=== PATIENT | female | born 1980 | race Caucasian/White ===

== ENCOUNTER 2016-06-25 15:48 | Emergency (ER) | payer OTHER ==
[~2016-06-25 15:48] MED LIST: ACIDCAP15 PO; ADDERALL PO; ASPI1TAB PO; ATOR1TAB19 PO; BENA25CA2 PO; BUSP10TA PO; CLON0.5T PO; FLUO60TA PO; FLUTISP; GABA-283 PO; GABA300C3 PO; HYDR25T PO; INSUDET SC; INSUHUMDS SC; IRON65TA PO; LAMO150T PO; LISI-542 PO; MAGN1TAB25 PO; MELA10CA PO; MONT10TA2 PO; NEXI40CA PO; PROBCAP4 PO; PROZ20CA11 PO; SERO50TA3 PO; SING10TA32 PO; WELL100T PO; WELLBUTRIN PO; [UNRECOGNIZED DRUG - CODE] PO
[2016-06-25 17:18] LABS: BASO % 0.2 % (0.0-1.0); EOS % 0.3 % (0.0-3.0); LARGE UNSTAINED CELL # 0.1 K/mm3 (0.0-0.4); LARGE UNSTAINED CELL % 0.6 % (0.0-4.0); LYMPH # 1.5 K/mm3 (1.5-4.5); LYMPH % 13.5 % (24.0-44.0); MEAN CORPUSCULAR HEMOGLOBIN 30.9 pg (27.0-33.0); MEAN CORPUSCULAR HGB CONC 33.5 g/dl (32.0-36.5); MEAN CORPUSCULAR VOLUME 92.3 fl (80.0-96.0); MONO # 0.3 K/mm3 (0.0-0.8); MONO % 2.6 % (0.0-5.0); NEUTROPHILS # 8.9 K/mm3 (1.8-7.7); NEUTROPHILS % 82.7 % (36.0-66.0); PLATELET COUNT, AUTOMATED 368 k/mm3 (150-450); RED CELL DISTRIBUTION WIDTH 11.9 % (11.5-14.5); WHITE BLOOD COUNT 10.8 K/mm3 (4.0-10.0)
[2016-06-25 17:52] LABS: ALBUMIN 3.8 GM/DL (3.2-5.2); ALBUMIN/GLOBULIN RATIO 1.27 (1.00-1.93); BILIRUBIN,DIRECT 0.2 MG/DL (0.0-0.2); BILIRUBIN,TOTAL 0.5 MG/DL (0.2-1.0); CALCIUM LEVEL 8.7 MG/DL (8.5-10.1); CREATININE FOR GFR 1.2 MG/DL (0.55-1.02); FREE T4 1.09 NG/DL (0.76-1.46); GLOMERULAR FILTRATION RATE 54.1 (>60); MAGNESIUM LEVEL 2.1 MG/DL (1.8-2.4); POTASSIUM SERUM 4.4 MEQ/L (3.5-5.1); TOTAL PROTEIN 6.8 GM/DL (6.4-8.2)
--- NOTE | 2016-06-25 21:02 | EDDOCDS ---
Nurse's Notes [facility] Name: Clair Yanes Age: 35 yrs Sex: Female : 1980 Arrival Date: 06/25/2016 Time: 15:48 Bed 6 Private MD: Marva Diagnosis: Hyperglycemia, unspecified;Dehydration Presentation: 06/25 15:51 Presenting complaint: Patient states: Blood sugar of 376 at home around 1500 today. Pt ead reports recent changes in insulin with pump, blood sugars have been in the 500's at home. Reports diarrhea and nausea over the past week. Adult Sepsis Screening: The patient does not have new or worsening altered mentation. Patient's respiratory rate is less than 22. Systolic blood pressure is greater than 100. Patient has a qSOFA score of 0- Negative Sepsis Screen. Suicide/Homicide risk assessment- the patient denies having any suicidal and/or homicidal ideations and does not present with any other emotional, behavioral or mental health complaints. Status: The patient is a dependent. Transition of care: patient was not received from another setting of care. 15:51 Acuity: SHELTON Level 3 ead 15:51 Method Of Arrival: Walkin/Carried/Asstd ead Triage Assessment: 15:57 General: Appears in no apparent distress, Behavior is appropriate for age, cooperative. ead Pain: Denies pain. HIV screening NA for this visit Offered previously. Respiratory: Airway is patent Respiratory effort is even, unlabored. GI: Reports nausea, Denies pain. Derm: Skin is pink, warm & dry. 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 aspirin 81 mg Oral chew 1 tab nightly 2. atorvastatin 10 mg oral tab 1 tab once daily 3. bupropion HCl 300 mg Oral Tb24 1 tab once daily 4. buspirone 10 mg Oral tab 1 tab 2 times per day 5. clonazepam 0.5 mg Oral tab 1 tab nightly 6. dextramp-amphet 25 mg XL twice a day 7. ferrous sulfate 325 mg (65 mg iron) Oral TbEC daily 8. Flonase 50 mcg/actuation Nasal spsn 2 sprays once daily 9. fluoxetine 60 mg Oral tab 1 tab once daily 10. gabapentin 400 mg Oral cap 1 cap nightly 11. lamotrigine 150 mg Oral tab 1 tab 2 times per day 12. Novolog 100 unit/mL Sub-Q soln insulin pump with sliding scale 13. lisinopril 5 mg Oral tab 1 tab nightly 14. Mag Citrate Oral 1600 mg nightly 15. magnesium oxide 400 mg oral tab 800 mg 16. melatonin 10 mg Oral tab nightly 17. MgO 400 mg oral tab daily 18. Nexium 40 mg Oral cpDR 1 cap 2 times per day 19. Pepcid 20 mg Oral tab 1 tab 2 times per day 20. Probiotic oral 1 billion 21. Seroquel 75 mg Oral tab 1 tab once daily 22. Singulair 10 mg Oral tab 1 tab nightly 23. topiramate oral 50 mg am 100 mg pm oral 24. Botox injection injection every three months - PMHx: Depression; Hypercholesterolemia; GERD; Diabetes - IDDM: controlled; Bipolar disorder; CVA; Anxiety; - PSHx: septoplasty; Tubal ligation; Laparoscopy; - Social history: Smoking status: Patient states was never smoker of tobacco. No barriers to communication noted, The patient speaks fluent Latvian, Speaks appropriately for age. - Family history: Not pertinent. - : The pt / caregiver states he / she is not on anticoagulants. Home medication list is obtained from the patient, [employer] import data. - Exposure Risk Screening:: None identified. Screenin:27 Screening information is obtained from the patient. Fall risk: No risks identified. kc3 Assistance ADL's: requires no assistance with activities of daily living. Abuse/DV Screen: The patient / caregiver reports he/she is: not in a situation that causes fear, pain or injury. Nutritional screening: No deficits noted. Advance Directives: Currently, there is no health care proxy. home support is adequate. Assessment: 17:26 General: Appears in no apparent distress, comfortable, Behavior is appropriate for age, kc3 cooperative. Pain: Location: abdomen. Neurological: Level of Consciousness is awake, alert, obeys commands, Oriented to person, place, time. Respiratory: Airway is patent Respiratory effort is even, unlabored. : Reports urinary frequency. Derm: Skin is pink, warm & dry. Musculoskeletal: Circulation, motion, and sensation intact. 18:47 General: Appears in no apparent distress, comfortable, Behavior is appropriate for age, kc3 cooperative. Neurological: Level of Consciousness is awake, alert, obeys commands, Oriented to person, place, time. Respiratory: Airway is patent Respiratory effort is even, unlabored. GI: Denies nausea. Derm: Skin is pink, warm & dry. 19:55 General: Appears in no apparent distress, comfortable, Behavior is appropriate for age, nn1 cooperative. Pain: Denies pain. Neurological: Level of Consciousness is awake, alert, obeys commands, Oriented to person, place, time. Respiratory: Airway is patent Respiratory effort is even, unlabored. Derm: Skin is pink, warm & dry. 21:00 General: Appears in no apparent distress, comfortable, Behavior is appropriate for age, nn1 cooperative. Neurological: Level of Consciousness is awake, alert, obeys commands, Oriented to person, place, time. Respiratory: Airway is patent Respiratory effort is even, unlabored. Derm: Skin is pink, warm & dry. Musculoskeletal: Circulation, motion, and sensation intact. Vital Signs: 15:50 BP 107 / 59; Pulse 115; Resp 18; Temp 97.6; Pulse Ox 98% on R/A; Weight 70.31 kg; dem1 Height 5 ft. 3 in. (160.02 cm); Pain 0/10; 18:48 BP 118 / 55; Pulse 87; Resp 18; Pulse Ox 97% on R/A; kc3 20:41 BP 113 / 57; Pulse 95; Resp 18; Temp 99.3(O); Pulse Ox 98% on R/A; Pain 0/10; osvaldo 15:50 Body Mass Index 27.46 (70.31 kg, 160.02 cm) [facility] Vitals: 15:50 Log In Time: June 25, 2016 at 15:48. [facility] ED Course: 15:49 Patient visited by Ale Mayberry. dem1 15:49 Marva is Private Physician. dem1 15:49 Patient moved to Waiting dem1 15:51 Patient moved to Pre RCE dem1 15:52 Triage Initiated ead 15:58 Imani Hamm,RN is Primary Nurse. ead 15:58 Patient moved to 6 ead 16:25 Gene Matamoros MD is Attending Physician. ml 16:25 Patient visited by Gene Matamoros MD. ml 17:26 Patient visited by Imani Hamm RN. kc3 17:28 The patient / caregiver is instructed regarding the plan of care and ED course. kc3 17:28 Inserted saline lock: 20 gauge in left antecubital area and blood collected. The kc3 patient tolerated the procedure well. 18:08 Patient visited by Imani Hamm RN. kc3 18:13 Fingerstick Blood Sugar Sent. jmb 18:46 Patient visited by Imani Hamm RN. kc3 19:14 T-Sheet-- Draft Copy was scanned into [employer] [place] and attached to record. zo 19:36 Attending Physician role handed off by Gene Matamoros MD cs11 19:36 Steven Akbar DO is Attending Physician. cs11 19:51 Patient visited by Sarahi Mac RN. nn1 20:38 Marva is Referral Physician. cs11 20:42 Patient visited by Karime Murphy PCA. osvaldo 21:01 No procedures done that require assistance. nn1 Administered Medications: 17:26 Drug: NS 0.9% 1000 ml [sodium chloride 0.9 % intravenous solution] Route: IV; Rate: kc3 bolus; Site: left antecubital; 18:35 Drug: NS 0.9% 1000 ml [sodium chloride 0.9 % intravenous solution] Route: IV; Rate: kc3 bolus; Site: left antecubital; Point of Care Testing: Blood Glucose: 15:59 Blood Glucose: 380 mg/dL; ead 18:07 Blood Glucose: 237 mg/dL; kcs 18:13 Blood Glucose: 221 mg/dL; jmb 19:55 Blood Glucose: 199 mg/dL; nn1 Ranges: Order Results: Lab Order: Fingerstick Blood Sugar; SPEC'M 06/25/16 15:53 Test: BEDSIDE GLUCOSE; Value: 380; Range: 70-105; Abnormal: Above high normal; Units: MG/DL; Status: F Lab Order: CBC with Diff; SPEC'M 06/25/16 17:08 Test: WHITE BLOOD COUNT; Value: 10.8; Range: 4.0-10.0; Abnormal: Above high normal; Units: K/mm3; Status: F Test: RED BLOOD COUNT; Value: 4.09; Range: 4.00-5.40; Units: M/mm3; Status: F Test: HEMOGLOBIN; Value: 12.6; Range: 12.0-16.0; Units: g/dl; Status: F Test: HEMATOCRIT; Value: 37.7; Range: 36.0-47.0; Units: %; Status: F Test: MEAN CORPUSCULAR VOLUME; Value: 92.3; Range: 80.0-96.0; Units: fl; Status: F Test: MEAN CORPUSCULAR HEMOGLOBIN; Value: 30.9; Range: 27.0-33.0; Units: pg; Status: F Test: MEAN CORPUSCULAR HGB CONC; Value: 33.5; Range: 32.0-36.5; Units: g/dl; Status: F Test: RED CELL DISTRIBUTION WIDTH; Value: 11.9; Range: 11.5-14.5; Units: %; Status: F Test: PLATELET COUNT, AUTOMATED; Value: 368; Range: 150-450; Units: k/mm3; Status: F Test: NEUTROPHILS %; Value: 82.7; Range: 36.0-66.0; Abnormal: Above high normal; Units: %; Status: F Test: LYMPH %; Value: 13.5; Range: 24.0-44.0; Abnormal: Below low normal; Units: %; Status: F Test: MONO %; Value: 2.6; Range: 0.0-5.0; Units: %; Status: F Test: EOS %; Value: 0.3; Range: 0.0-3.0; Units: %; Status: F Test: BASO %; Value: 0.2; Range: 0.0-1.0; Units: %; Status: F Test: LARGE UNSTAINED CELL %; Value: 0.6; Range: 0.0-4.0; Units: %; Status: F Test: NEUTROPHILS #; Value: 8.9; Range: 1.8-7.7; Abnormal: Above high normal; Units: K/mm3; Status: F Test: LYMPH #; Value: 1.5; Range: 1.5-4.5; Units: K/mm3; Status: F Test: MONO #; Value: 0.3; Range: 0.0-0.8; Units: K/mm3; Status: F Test: EOS #; Value: 0.0; Range: 0.0-0.50; Units: K/mm3; Status: F Test: BASO #; Value: 0.0; Range: 0.0-0.2; Units: K/mm3; Status: F Test: LARGE UNSTAINED CELL #; Value: 0.1; Range: 0.0-0.4; Units: K/mm3; Status: F Lab Order: Liver Profile; [facility] 06/25/16 17:08 Test: AST/SGOT; Value: 17; Range: 15-37; Units: U/L; Status: F Test: ALT/SGPT; Value: 32; Range: 12-78; Units: U/L; Status: F Test: ALKALINE PHOSPHATASE; Value: 125; Range: 45-117; Abnormal: Above high normal; Units: U/L; Status: F Test: BILIRUBIN,TOTAL; Value: 0.5; Range: 0.2-1.0; Units: MG/DL; Status: F Test: BILIRUBIN,DIRECT; Value: 0.2; Range: 0.0-0.2; Units: MG/DL; Status: F Test: TOTAL PROTEIN; Value: 6.8; Range: 6.4-8.2; Units: GM/DL; Status: F Test: ALBUMIN; Value: 3.8; Range: 3.2-5.2; Units: GM/DL; Status: F Test: ALBUMIN/GLOBULIN RATIO; Value: 1.27; Range: 1.00-1.93; Status: F Lab Order: Magnesium Level; [facility] 06/25/16 17:08 Test: MAGNESIUM LEVEL; Value: 2.1; Range: 1.8-2.4; Units: MG/DL; Status: F Lab Order: TSH with Free T4; [facility]06/25[facility]16 17:08 Test: THYROID STIMULATING HORMONE; Value: 0.494; Range: 0.358-3.740; Units: uIU/ML; Status: F Test: FREE T4; Value: 1.09; Range: 0.76-1.46; Units: NG/DL; Status: F Lab Order: UA; [facility]06/[facility] 16:56 Test: APPEARANCE, URINE; Value: HAZY; Range: CLEAR; Status: F Test: COLOR, URINE; Value: YELLOW; Range: YELLOW; Status: F Test: PH,URINE; Value: 5.0; Range: 5.0-9.0; Units: UNITS; Status: F Test: SPECIFIC GRAVITY URINE AUTO; Value: 1.030; Range: 1.002-1.035; Status: F Test: PROTEIN, URINE AUTO; Value: NEGATIVE; Range: NEGATIVE; Units: mg/dL; Status: F Test: GLUCOSE, URINE (UA) AUTO; Value: 3+; Range: NEGATIVE; Abnormal: Above high normal; Units: mg/dL; Status: F Test: KETONE, URINE AUTO; Value: 2+; Range: NEGATIVE; Abnormal: Above high normal; Units: mg/dL; Status: F Test: UROBILINOGEN, URINE AUTO; Value: 0.2; Range: 0.0-2.0; Units: mg/dL; Status: F Test: BILIRUBIN, URINE AUTO; Value: NEGATIVE; Range: NEGATIVE; Status: F Test: NITRITE, URINE AUTO; Value: NEGATIVE; Range: NEGATIVE; Status: F Test: LEUKOCYTE ESTERASE, URINE AUTO; Value: NEGATIVE; Range: NEGATIVE; Status: F Test: BLOOD, URINE BLOOD; Value: NEGATIVE; Range: NEGATIVE; Status: F Test: WBC, URINE AUTO; Value: 1; Range: 0-3; Units: /HPF; Status: F Test: RBC, URINE AUTO; Value: 2; Range: 0-3; Units: /HPF; Status: F Test: BACTERIA, URINE AUTO; Value: NEGATIVE; Range: NEGATIVE; Status: F Test: SQUAMOUS EPITHELIAL CELL UR AU; Value: 3; Range: 0-6; Units: /HPF; Status: F Test: MUCUS, URINE; Value: SMALL; Range: NEGATIVE; Status: F Test: HYALINE CAST, URINE AUTO; Value: 0; Range: 0-1; Units: /LPF; Status: F Test: AMORPHOUS SEDIMENT; Value: SMALL; Range: NEGATIVE; Abnormal: Above high normal; Status: F Lab Order: BASIC METABOLIC PROFILE; SPEC'M 06/25/16 17:08 Test: GLUCOSE, FASTING; Value: 311; Range: 70-105; Abnormal: Above high normal; Units: MG/DL; Status: F Test: BLOOD UREA NITROGEN; Value: 32; Range: 7-18; Abnormal: Above high normal; Units: MG/DL; Status: F Test: CREATININE FOR GFR; Value: 1.20; Range: 0.55-1.02; Abnormal: Above high normal; Units: MG/DL; Status: F Test: GLOMERULAR FILTRATION RATE; Value: 54.1; Range: >60; Abnormal: Below low normal; Status: F Test: SODIUM LEVEL; Value: 135; Range: 136-145; Abnormal: Below low normal; Units: MEQ/L; Status: F Test: POTASSIUM SERUM; Value: 4.4; Range: 3.5-5.1; Units: MEQ/L; Status: F Test: CHLORIDE LEVEL; Value: 101; Range: 98-107; Units: MEQ/L; Status: F Test: CARBON DIOXIDE LEVEL; Value: 20; Range: 21-32; Abnormal: Below low normal; Units: MEQ/L; Status: F Test: ANION GAP; Value: 14; Range: 8-16; Units: MEQ/L; Status: F Test: CALCIUM LEVEL; Value: 8.7; Range: 8.5-10.1; Units: MG/DL; Status: F Test Note: ; Units are mL/min/1.73 m2 Chronic Kidney Disease Staging per NKF: Stage I & II GFR >=60 Normal to Mildly Decreased Stage III GFR 30-59 Moderately Decreased Stage IV GFR 15-29 Severely Decreased Stage V GFR <15 Very Little GFR Left ESRD GFR <15 on CERTIFIED MEDICATION TECHNICIAN Lab Order: Fingerstick Blood Sugar; SPEC'06/25/16 18:00 Test: BEDSIDE GLUCOSE; Value: 237; Range: 70-105; Abnormal: Above high normal; Units: MG/DL; Status: F Test Note: ; Dr Order not to Draw Repeated Test Lab Order: Fingerstick Blood Sugar; SPEC'M 06/25/16 18:12 Test: BEDSIDE GLUCOSE; Value: 221; Range: 70-105; Abnormal: Above high normal; Units: MG/DL; Status: F Lab Order: Fingerstick Blood Sugar; SPEC'06/25/16 19:54 Test: BEDSIDE GLUCOSE; Value: 199; Range: 70-105; Abnormal: Above high normal; Units: MG/DL; Status: F Outcome: 20:39 Discharge ordered by Provider. cs11 21:01 Discharge Assessment: Patient awake, alert and oriented x 3. No cognitive and/or nn1 functional deficits noted. Patient verbalized understanding of disposition instructions. patient administered narcotics - no. The following High Risk Discharge criteria are identified: None. Discharged to home ambulatory, with family. Condition: stable Condition: improved. Property :Personal belongings accompany Pt. 21:01 No special radiology studies were completed. nn1 21:01 Patient left the ED. nn1 Signatures: Gene Matamoros MD MD ml Sleeman, Kacey, RN RN Yogesh Berman Destiny, COUNTY COURT JUDGE COUNTY COURT JUDGE osvaldo Jefe, Ale dem1 Steven Akbar, DO cs11 Jose Armando EdwardsRN RN Sierra MoraRN RN Sarahi DimasRN RN nn1 Imani Hamm,RN RN kc3 MTDD
--- NOTE | 2016-06-25 21:02 | EDDOCDS ---
Physician Documentation [facility] Name: Clair Yanes Age: 35 yrs Sex: Female : 1980 Arrival Date: 06/25/2016 Time: 15:48 Bed 6 Private MD: Marva Disposition: 06/25/16 20:39 Discharged to Home/Self Care. Impression: Hyperglycemia, unspecified, Dehydration. - Condition is Stable. - Medication Reconciliation, Local Pharmacy Hours form. - Follow up: Marva; When: Call to arrange an appointment; Reason: Recheck today's complaints. - Problem is chronic. - Symptoms have improved. Historical: - Allergies: Latuda (Swelling); - Home Meds: 1. aspirin 81 mg Oral chew 1 tab nightly 2. atorvastatin 10 mg oral tab 1 tab once daily 3. bupropion HCl 300 mg Oral Tb24 1 tab once daily 4. buspirone 10 mg Oral tab 1 tab 2 times per day 5. clonazepam 0.5 mg Oral tab 1 tab nightly 6. dextramp-amphet 25 mg XL twice a day 7. ferrous sulfate 325 mg (65 mg iron) Oral TbEC daily 8. Flonase 50 mcg/actuation Nasal spsn 2 sprays once daily 9. fluoxetine 60 mg Oral tab 1 tab once daily 10. gabapentin 400 mg Oral cap 1 cap nightly 11. lamotrigine 150 mg Oral tab 1 tab 2 times per day 12. Novolog 100 unit/mL Sub-Q soln insulin pump with sliding scale 13. lisinopril 5 mg Oral tab 1 tab nightly 14. Mag Citrate Oral 1600 mg nightly 15. magnesium oxide 400 mg oral tab 800 mg 16. melatonin 10 mg Oral tab nightly 17. MgO 400 mg oral tab daily 18. Nexium 40 mg Oral cpDR 1 cap 2 times per day 19. Pepcid 20 mg Oral tab 1 tab 2 times per day 20. Probiotic oral 1 billion 21. Seroquel 75 mg Oral tab 1 tab once daily 22. Singulair 10 mg Oral tab 1 tab nightly 23. topiramate oral 50 mg am 100 mg pm oral 24. Botox injection injection every three months - PMHx: Depression; Hypercholesterolemia; GERD; Diabetes - IDDM: controlled; Bipolar disorder; CVA; Anxiety; - PSHx: septoplasty; Tubal ligation; Laparoscopy; - Social history: Smoking status: Patient states was never smoker of tobacco. No barriers to communication noted, The patient speaks fluent Persian, Speaks appropriately for age. - Family history: Not pertinent. - : The pt / caregiver states he / she is not on anticoagulants. Home medication list is obtained from the patient, [employer] import data. - Exposure Risk Screening:: None identified. 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 3 in. (160.02 cm); Pain 0/10; 18:48 BP 118 / 55; Pulse 87; Resp 18; Pulse Ox 97% on R/A; kc3 20:41 BP 113 / 57; Pulse 95; Resp 18; Temp 99.3(O); Pulse Ox 98% on R/A; Pain 0/10; osvaldo 15:50 Body Mass Index 27.46 (70.31 kg, 160.02 cm) dem1 MDM: 15:56 Accucheck ordered. ar2 16:00 Fingerstick Blood Sugar Ordered. EDMS 16:20 IV Saline Lock ordered. br1 16:21 CBC with Diff Ordered. EDMS 16:34 NS 0.9% 1000 ml IV at bolus once ordered. ml 16:35 Liver Profile Ordered. EDMS 16:35 Magnesium Level Ordered. EDMS 16:35 TSH with Free T4 Ordered. EDMS 16:35 UA Ordered. EDMS 16:35 Urine Culture Ordered. EDMS 17:11 BASIC METABOLIC PROFILE Ordered. EDMS 17:56 Fingerstick Blood Sugar Reviewed. ml 17:56 CBC with Diff Reviewed. ml 17:56 Liver Profile Reviewed. ml 17:56 UA Reviewed. ml 17:56 BASIC METABOLIC PROFILE Reviewed. ml 17:56 Magnesium Level Reviewed. ml 17:56 TSH with Free T4 Reviewed. ml 17:57 Accucheck ordered. ml 18:11 Fingerstick Blood Sugar Ordered. EDMS 18:19 Fingerstick Blood Sugar Ordered. EDMS 18:28 Fingerstick Blood Sugar Reviewed. ml 18:28 Fingerstick Blood Sugar Reviewed. ml 18:31 NS 0.9% 1000 ml IV at bolus once ordered. ml 18:38 Financial registration complete. zo 19:14 T-Sheet-- Draft Copy was scanned into [employer] and attached to record. zo 20:02 Fingerstick Blood Sugar Ordered. EDMS Point of Care Testing: Blood Glucose: 15:59 Blood Glucose: 380 mg/dL; ead 18:07 Blood Glucose: 237 mg/dL; kcs 18:13 Blood Glucose: 221 mg/dL; jmb 19:55 Blood Glucose: 199 mg/dL; nn1 Ranges: Administered Medications: 17:26 Drug: NS 0.9% 1000 ml [sodium chloride 0.9 % intravenous solution] Route: IV; Rate: kc3 bolus; Site: left antecubital; 18:35 Drug: NS 0.9% 1000 ml [sodium chloride 0.9 % intravenous solution] Route: IV; Rate: kc3 bolus; Site: left antecubital; Signatures: Dispatcher [employer] EDDC Gene Matamoros MD MD ml Olin, Zoeann zo Roggie, Brian, MD MD br1 Leland Weber, PA-Micah PA-Micah ar2 Steven Akbar DO DO cs11 Sierra Baker RN RN ead Nunez, Nikkole, RN RN nn1 Imani Hamm RN RN kc3 The chart was reviewed and I authenticate all verbal orders and agree with the evaluation and treatment provided.Corrections: (The following items were deleted from the chart) 17:11 16:21 BASIC METABOLIC PROFILE+LAB ordered. EDDC EDMS Attachments: 19:14 T-Sheet-- Draft Copy zo MTDD
--- NOTE | 2016-06-27 22:02 | EDDOCDS ---
Physician Documentation [facility] Name: Clair Yanes Age: 35 yrs Sex: Female : 1980 Arrival Date: 06/25/2016 Time: 15:48 Bed 6 Private MD: Marva Disposition: 06/25/16 20:39 Discharged to Home/Self Care. Impression: Hyperglycemia, unspecified, Dehydration. - Condition is Stable. - Medication Reconciliation, Local Pharmacy Hours form. - Follow up: Marva; When: Call to arrange an appointment; Reason: Recheck today's complaints. - Problem is chronic. - Symptoms have improved. Historical: - Allergies: Latuda (Swelling); - Home Meds: 1. aspirin 81 mg Oral chew 1 tab nightly 2. atorvastatin 10 mg oral tab 1 tab once daily 3. bupropion HCl 300 mg Oral Tb24 1 tab once daily 4. buspirone 10 mg Oral tab 1 tab 2 times per day 5. clonazepam 0.5 mg Oral tab 1 tab nightly 6. dextramp-amphet 25 mg XL twice a day 7. ferrous sulfate 325 mg (65 mg iron) Oral TbEC daily 8. Flonase 50 mcg/actuation Nasal spsn 2 sprays once daily 9. fluoxetine 60 mg Oral tab 1 tab once daily 10. gabapentin 400 mg Oral cap 1 cap nightly 11. lamotrigine 150 mg Oral tab 1 tab 2 times per day 12. Novolog 100 unit/mL Sub-Q soln insulin pump with sliding scale 13. lisinopril 5 mg Oral tab 1 tab nightly 14. Mag Citrate Oral 1600 mg nightly 15. magnesium oxide 400 mg oral tab 800 mg 16. melatonin 10 mg Oral tab nightly 17. MgO 400 mg oral tab daily 18. Nexium 40 mg Oral cpDR 1 cap 2 times per day 19. Pepcid 20 mg Oral tab 1 tab 2 times per day 20. Probiotic oral 1 billion 21. Seroquel 75 mg Oral tab 1 tab once daily 22. Singulair 10 mg Oral tab 1 tab nightly 23. topiramate oral 50 mg am 100 mg pm oral 24. Botox injection injection every three months - PMHx: Depression; Hypercholesterolemia; GERD; Diabetes - IDDM: controlled; Bipolar disorder; CVA; Anxiety; - PSHx: septoplasty; Tubal ligation; Laparoscopy; - Social history: Smoking status: Patient states was never smoker of tobacco. No barriers to communication noted, The patient speaks fluent Divehi, Speaks appropriately for age. - Family history: Not pertinent. - : The pt / caregiver states he / she is not on anticoagulants. Home medication list is obtained from the patient, [email or web address] import data. - Exposure Risk Screening:: None identified. 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 3 in. (160.02 cm); Pain 0/10; 18:48 BP 118 / 55; Pulse 87; Resp 18; Pulse Ox 97% on R/A; kc3 20:41 BP 113 / 57; Pulse 95; Resp 18; Temp 99.3(O); Pulse Ox 98% on R/A; Pain 0/10; osvaldo 15:50 Body Mass Index 27.46 (70.31 kg, 160.02 cm) dem1 MDM: 15:56 Accucheck ordered. ar2 16:00 Fingerstick Blood Sugar Ordered. EDMS 16:20 IV Saline Lock ordered. br1 16:21 CBC with Diff Ordered. EDMS 16:34 NS 0.9% 1000 ml IV at bolus once ordered. ml 16:35 Liver Profile Ordered. EDMS 16:35 Magnesium Level Ordered. EDMS 16:35 TSH with Free T4 Ordered. EDMS 16:35 UA Ordered. EDMS 16:35 Urine Culture Ordered. EDMS 17:11 BASIC METABOLIC PROFILE Ordered. EDMS 17:56 Fingerstick Blood Sugar Reviewed. ml 17:56 CBC with Diff Reviewed. ml 17:56 Liver Profile Reviewed. ml 17:56 UA Reviewed. ml 17:56 BASIC METABOLIC PROFILE Reviewed. ml 17:56 Magnesium Level Reviewed. ml 17:56 TSH with Free T4 Reviewed. ml 17:57 Accucheck ordered. ml 18:11 Fingerstick Blood Sugar Ordered. EDMS 18:19 Fingerstick Blood Sugar Ordered. EDMS 18:28 Fingerstick Blood Sugar Reviewed. ml 18:28 Fingerstick Blood Sugar Reviewed. ml 18:31 NS 0.9% 1000 ml IV at bolus once ordered. ml 18:38 Financial registration complete. zo 19:14 T-Sheet-- Draft Copy was scanned into [employer] and attached to record. zo 20:02 Fingerstick Blood Sugar Ordered. EDMS 06/26 11:05 T-Sheet-- Draft Copy was scanned into [employer] and attached to record. gb Point of Care Testing: Blood Glucose: 06/25 15:59 Blood Glucose: 380 mg/dL; ead 18:07 Blood Glucose: 237 mg/dL; kcs 18:13 Blood Glucose: 221 mg/dL; jmb 19:55 Blood Glucose: 199 mg/dL; nn1 Ranges: Administered Medications: 17:26 Drug: NS 0.9% 1000 ml [sodium chloride 0.9 % intravenous solution] Route: IV; Rate: kc3 bolus; Site: left antecubital; 18:35 Drug: NS 0.9% 1000 ml [sodium chloride 0.9 % intravenous solution] Route: IV; Rate: kc3 bolus; Site: left antecubital; Signatures: Dispatcher [employer] EDWI Gene Matamoros MD MD ml Toyin aSpp, Reg Reg gb Yogesh Mcclendon Brian, MD MD br1 Leland Weber PAJory PA-Micah ar2 Steven Akbar, DO cs11 Sierra BakerRN Sarahi Savage RN RN nn1 Imani Hamm RN RN kc3 The chart was reviewed and I authenticate all verbal orders and agree with the evaluation and treatment provided.Corrections: (The following items were deleted from the chart) 17:11 16:21 BASIC METABOLIC PROFILE+LAB ordered. EDWI EDWI Attachments: 19:14 T-Sheet-- Draft Copy zo 06/26 11:05 T-Sheet-- Draft Copy gb Chart Complete MTDD
--- NOTE | 2016-06-27 22:02 | EDDOCDS ---
Physician Documentation [facility] Name: Clair Yanes Age: 35 yrs Sex: Female : 1980 Arrival Date: 06/25/2016 Time: 15:48 Bed 6 Private MD: Marva Disposition: 06/25/16 20:39 Discharged to Home/Self Care. Impression: Hyperglycemia, unspecified, Dehydration. - Condition is Stable. - Medication Reconciliation, Local Pharmacy Hours form. - Follow up: Marva; When: Call to arrange an appointment; Reason: Recheck today's complaints. - Problem is chronic. - Symptoms have improved. Historical: - Allergies: Latuda (Swelling); - Home Meds: 1. aspirin 81 mg Oral chew 1 tab nightly 2. atorvastatin 10 mg oral tab 1 tab once daily 3. bupropion HCl 300 mg Oral Tb24 1 tab once daily 4. buspirone 10 mg Oral tab 1 tab 2 times per day 5. clonazepam 0.5 mg Oral tab 1 tab nightly 6. dextramp-amphet 25 mg XL twice a day 7. ferrous sulfate 325 mg (65 mg iron) Oral TbEC daily 8. Flonase 50 mcg/actuation Nasal spsn 2 sprays once daily 9. fluoxetine 60 mg Oral tab 1 tab once daily 10. gabapentin 400 mg Oral cap 1 cap nightly 11. lamotrigine 150 mg Oral tab 1 tab 2 times per day 12. Novolog 100 unit/mL Sub-Q soln insulin pump with sliding scale 13. lisinopril 5 mg Oral tab 1 tab nightly 14. Mag Citrate Oral 1600 mg nightly 15. magnesium oxide 400 mg oral tab 800 mg 16. melatonin 10 mg Oral tab nightly 17. MgO 400 mg oral tab daily 18. Nexium 40 mg Oral cpDR 1 cap 2 times per day 19. Pepcid 20 mg Oral tab 1 tab 2 times per day 20. Probiotic oral 1 billion 21. Seroquel 75 mg Oral tab 1 tab once daily 22. Singulair 10 mg Oral tab 1 tab nightly 23. topiramate oral 50 mg am 100 mg pm oral 24. Botox injection injection every three months - PMHx: Depression; Hypercholesterolemia; GERD; Diabetes - IDDM: controlled; Bipolar disorder; CVA; Anxiety; - PSHx: septoplasty; Tubal ligation; Laparoscopy; - Social history: Smoking status: Patient states was never smoker of tobacco. No barriers to communication noted, The patient speaks fluent Serbian, Speaks appropriately for age. - Family history: Not pertinent. - : The pt / caregiver states he / she is not on anticoagulants. Home medication list is obtained from the patient, [employer] import data. - Exposure Risk Screening:: None identified. 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 3 in. (160.02 cm); Pain 0/10; 18:48 BP 118 / 55; Pulse 87; Resp 18; Pulse Ox 97% on R/A; kc3 20:41 BP 113 / 57; Pulse 95; Resp 18; Temp 99.3(O); Pulse Ox 98% on R/A; Pain 0/10; osvaldo 15:50 Body Mass Index 27.46 (70.31 kg, 160.02 cm) dem1 MDM: 15:56 Accucheck ordered. ar2 16:00 Fingerstick Blood Sugar Ordered. EDMS 16:20 IV Saline Lock ordered. br1 16:21 CBC with Diff Ordered. EDMS 16:34 NS 0.9% 1000 ml IV at bolus once ordered. ml 16:35 Liver Profile Ordered. EDMS 16:35 Magnesium Level Ordered. EDMS 16:35 TSH with Free T4 Ordered. EDMS 16:35 UA Ordered. EDMS 16:35 Urine Culture Ordered. EDMS 17:11 BASIC METABOLIC PROFILE Ordered. EDMS 17:56 Fingerstick Blood Sugar Reviewed. ml 17:56 CBC with Diff Reviewed. ml 17:56 Liver Profile Reviewed. ml 17:56 UA Reviewed. ml 17:56 BASIC METABOLIC PROFILE Reviewed. ml 17:56 Magnesium Level Reviewed. ml 17:56 TSH with Free T4 Reviewed. ml 17:57 Accucheck ordered. ml 18:11 Fingerstick Blood Sugar Ordered. EDMS 18:19 Fingerstick Blood Sugar Ordered. EDMS 18:28 Fingerstick Blood Sugar Reviewed. ml 18:28 Fingerstick Blood Sugar Reviewed. ml 18:31 NS 0.9% 1000 ml IV at bolus once ordered. ml 18:38 Financial registration complete. zo 19:14 T-Sheet-- Draft Copy was scanned into [employer] and attached to record. zo 20:02 Fingerstick Blood Sugar Ordered. EDMS 06/26 11:05 T-Sheet-- Draft Copy was scanned into [employer] and attached to record. gb Point of Care Testing: Blood Glucose: 06/25 15:59 Blood Glucose: 380 mg/dL; ead 18:07 Blood Glucose: 237 mg/dL; kcs 18:13 Blood Glucose: 221 mg/dL; jmb 19:55 Blood Glucose: 199 mg/dL; nn1 Ranges: Administered Medications: 17:26 Drug: NS 0.9% 1000 ml [sodium chloride 0.9 % intravenous solution] Route: IV; Rate: kc3 bolus; Site: left antecubital; 18:35 Drug: NS 0.9% 1000 ml [sodium chloride 0.9 % intravenous solution] Route: IV; Rate: kc3 bolus; Site: left antecubital; Signatures: Dispatcher [employer] EDLA Gene Matamoros MD MD ml Toyin Sapp, Reg Reg gb Yogesh Mcclendon Brian, MD MD br1 Leland Weber PAJory PA-Micah ar2 Steven Akbar, DO cs11 Sierra BakerRN Sarahi Savage RN RN nn1 Imani Hamm RN RN kc3 The chart was reviewed and I authenticate all verbal orders and agree with the evaluation and treatment provided.Corrections: (The following items were deleted from the chart) 17:11 16:21 BASIC METABOLIC PROFILE+LAB ordered. EDLA EDLA Attachments: 19:14 T-Sheet-- Draft Copy zo 06/26 11:05 T-Sheet-- Draft Copy gb Chart Complete MTDD
--- NOTE | 2016-06-27 22:02 | EDDOCDS ---
Nurse's Notes [facility] Name: Clair Yanes Age: 35 yrs Sex: Female : 1980 Arrival Date: 06/25/2016 Time: 15:48 Bed 6 Private MD: Marva Diagnosis: Hyperglycemia, unspecified;Dehydration Presentation: 06/25 15:51 Presenting complaint: Patient states: Blood sugar of 376 at home around 1500 today. Pt ead reports recent changes in insulin with pump, blood sugars have been in the 500's at home. Reports diarrhea and nausea over the past week. Adult Sepsis Screening: The patient does not have new or worsening altered mentation. Patient's respiratory rate is less than 22. Systolic blood pressure is greater than 100. Patient has a qSOFA score of 0- Negative Sepsis Screen. Suicide/Homicide risk assessment- the patient denies having any suicidal and/or homicidal ideations and does not present with any other emotional, behavioral or mental health complaints. Status: The patient is a dependent. Transition of care: patient was not received from another setting of care. 15:51 Acuity: SHELTON Level 3 ead 15:51 Method Of Arrival: Walkin/Carried/Asstd ead Triage Assessment: 15:57 General: Appears in no apparent distress, Behavior is appropriate for age, cooperative. ead Pain: Denies pain. HIV screening NA for this visit Offered previously. Respiratory: Airway is patent Respiratory effort is even, unlabored. GI: Reports nausea, Denies pain. Derm: Skin is pink, warm & dry. 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 aspirin 81 mg Oral chew 1 tab nightly 2. atorvastatin 10 mg oral tab 1 tab once daily 3. bupropion HCl 300 mg Oral Tb24 1 tab once daily 4. buspirone 10 mg Oral tab 1 tab 2 times per day 5. clonazepam 0.5 mg Oral tab 1 tab nightly 6. dextramp-amphet 25 mg XL twice a day 7. ferrous sulfate 325 mg (65 mg iron) Oral TbEC daily 8. Flonase 50 mcg/actuation Nasal spsn 2 sprays once daily 9. fluoxetine 60 mg Oral tab 1 tab once daily 10. gabapentin 400 mg Oral cap 1 cap nightly 11. lamotrigine 150 mg Oral tab 1 tab 2 times per day 12. Novolog 100 unit/mL Sub-Q soln insulin pump with sliding scale 13. lisinopril 5 mg Oral tab 1 tab nightly 14. Mag Citrate Oral 1600 mg nightly 15. magnesium oxide 400 mg oral tab 800 mg 16. melatonin 10 mg Oral tab nightly 17. MgO 400 mg oral tab daily 18. Nexium 40 mg Oral cpDR 1 cap 2 times per day 19. Pepcid 20 mg Oral tab 1 tab 2 times per day 20. Probiotic oral 1 billion 21. Seroquel 75 mg Oral tab 1 tab once daily 22. Singulair 10 mg Oral tab 1 tab nightly 23. topiramate oral 50 mg am 100 mg pm oral 24. Botox injection injection every three months - PMHx: Depression; Hypercholesterolemia; GERD; Diabetes - IDDM: controlled; Bipolar disorder; CVA; Anxiety; - PSHx: septoplasty; Tubal ligation; Laparoscopy; - Social history: Smoking status: Patient states was never smoker of tobacco. No barriers to communication noted, The patient speaks fluent Divehi, Speaks appropriately for age. - Family history: Not pertinent. - : The pt / caregiver states he / she is not on anticoagulants. Home medication list is obtained from the patient, [employer] import data. - Exposure Risk Screening:: None identified. Screenin:27 Screening information is obtained from the patient. Fall risk: No risks identified. kc3 Assistance ADL's: requires no assistance with activities of daily living. Abuse/DV Screen: The patient / caregiver reports he/she is: not in a situation that causes fear, pain or injury. Nutritional screening: No deficits noted. Advance Directives: Currently, there is no health care proxy. home support is adequate. Assessment: 17:26 General: Appears in no apparent distress, comfortable, Behavior is appropriate for age, kc3 cooperative. Pain: Location: abdomen. Neurological: Level of Consciousness is awake, alert, obeys commands, Oriented to person, place, time. Respiratory: Airway is patent Respiratory effort is even, unlabored. : Reports urinary frequency. Derm: Skin is pink, warm & dry. Musculoskeletal: Circulation, motion, and sensation intact. 18:47 General: Appears in no apparent distress, comfortable, Behavior is appropriate for age, kc3 cooperative. Neurological: Level of Consciousness is awake, alert, obeys commands, Oriented to person, place, time. Respiratory: Airway is patent Respiratory effort is even, unlabored. GI: Denies nausea. Derm: Skin is pink, warm & dry. 19:55 General: Appears in no apparent distress, comfortable, Behavior is appropriate for age, nn1 cooperative. Pain: Denies pain. Neurological: Level of Consciousness is awake, alert, obeys commands, Oriented to person, place, time. Respiratory: Airway is patent Respiratory effort is even, unlabored. Derm: Skin is pink, warm & dry. 21:00 General: Appears in no apparent distress, comfortable, Behavior is appropriate for age, nn1 cooperative. Neurological: Level of Consciousness is awake, alert, obeys commands, Oriented to person, place, time. Respiratory: Airway is patent Respiratory effort is even, unlabored. Derm: Skin is pink, warm & dry. Musculoskeletal: Circulation, motion, and sensation intact. Vital Signs: 15:50 BP 107 / 59; Pulse 115; Resp 18; Temp 97.6; Pulse Ox 98% on R/A; Weight 70.31 kg; dem1 Height 5 ft. 3 in. (160.02 cm); Pain 0/10; 18:48 BP 118 / 55; Pulse 87; Resp 18; Pulse Ox 97% on R/A; kc3 20:41 BP 113 / 57; Pulse 95; Resp 18; Temp 99.3(O); Pulse Ox 98% on R/A; Pain 0/10; osvaldo 15:50 Body Mass Index 27.46 (70.31 kg, 160.02 cm) [facility] Vitals: 15:50 Log In Time: June 25, 2016 at 15:48. [facility] ED Course: 15:49 Patient visited by Ale Mayberry. dem1 15:49 Marva is Private Physician. dem1 15:49 Patient moved to Waiting dem1 15:51 Patient moved to Pre RCE dem1 15:52 Triage Initiated ead 15:58 Imani Hamm,RN is Primary Nurse. ead 15:58 Patient moved to 6 ead 16:25 Gene Matamoros MD is Attending Physician. ml 16:25 Patient visited by Gene Matamoros MD. ml 17:26 Patient visited by Imani Hamm RN. kc3 17:28 The patient / caregiver is instructed regarding the plan of care and ED course. kc3 17:28 Inserted saline lock: 20 gauge in left antecubital area and blood collected. The kc3 patient tolerated the procedure well. 18:08 Patient visited by Imani Hamm RN. noelle3 18:13 Fingerstick Blood Sugar Sent. jmb 18:46 Patient visited by Imani Hamm RN. kc3 19:14 T-Sheet-- Draft Copy was scanned into [employer] and attached to record. zo 19:36 Attending Physician role handed off by Gene Matamoros MD cs11 19:36 Steven Akbar DO is Attending Physician. cs11 19:51 Patient visited by Sarahi Mac RN. nn1 20:38 Marva is Referral Physician. cs11 20:42 Patient visited by Karime Murphy PCA. osvaldo 21:01 No procedures done that require assistance. nn1 06/26 11:05 T-Sheet-- Draft Copy was scanned into [employer] and attached to record. gb Administered Medications: 06/25 17:26 Drug: NS 0.9% 1000 ml [sodium chloride 0.9 % intravenous solution] Route: IV; Rate: kc3 bolus; Site: left antecubital; 18:35 Drug: NS 0.9% 1000 ml [sodium chloride 0.9 % intravenous solution] Route: IV; Rate: kc3 bolus; Site: left antecubital; Point of Care Testing: Blood Glucose: 15:59 Blood Glucose: 380 mg/dL; ead 18:07 Blood Glucose: 237 mg/dL; kcs 18:13 Blood Glucose: 221 mg/dL; jmb 19:55 Blood Glucose: 199 mg/dL; nn1 Ranges: Order Results: Lab Order: Fingerstick Blood Sugar; SPEC'M 06/25/16 15:53 Test: BEDSIDE GLUCOSE; Value: 380; Range: 70-105; Abnormal: Above high normal; Units: MG/DL; Status: F Lab Order: CBC with Diff; SPEC'M 06/25/16 17:08 Test: WHITE BLOOD COUNT; Value: 10.8; Range: 4.0-10.0; Abnormal: Above high normal; Units: K/mm3; Status: F Test: RED BLOOD COUNT; Value: 4.09; Range: 4.00-5.40; Units: M/mm3; Status: F Test: HEMOGLOBIN; Value: 12.6; Range: 12.0-16.0; Units: g/dl; Status: F Test: HEMATOCRIT; Value: 37.7; Range: 36.0-47.0; Units: %; Status: F Test: MEAN CORPUSCULAR VOLUME; Value: 92.3; Range: 80.0-96.0; Units: fl; Status: F Test: MEAN CORPUSCULAR HEMOGLOBIN; Value: 30.9; Range: 27.0-33.0; Units: pg; Status: F Test: MEAN CORPUSCULAR HGB CONC; Value: 33.5; Range: 32.0-36.5; Units: g/dl; Status: F Test: RED CELL DISTRIBUTION WIDTH; Value: 11.9; Range: 11.5-14.5; Units: %; Status: F Test: PLATELET COUNT, AUTOMATED; Value: 368; Range: 150-450; Units: k/mm3; Status: F Test: NEUTROPHILS %; Value: 82.7; Range: 36.0-66.0; Abnormal: Above high normal; Units: %; Status: F Test: LYMPH %; Value: 13.5; Range: 24.0-44.0; Abnormal: Below low normal; Units: %; Status: F Test: MONO %; Value: 2.6; Range: 0.0-5.0; Units: %; Status: F Test: EOS %; Value: 0.3; Range: 0.0-3.0; Units: %; Status: F Test: BASO %; Value: 0.2; Range: 0.0-1.0; Units: %; Status: F Test: LARGE UNSTAINED CELL %; Value: 0.6; Range: 0.0-4.0; Units: %; Status: F Test: NEUTROPHILS #; Value: 8.9; Range: 1.8-7.7; Abnormal: Above high normal; Units: K/mm3; Status: F Test: LYMPH #; Value: 1.5; Range: 1.5-4.5; Units: K/mm3; Status: F Test: MONO #; Value: 0.3; Range: 0.0-0.8; Units: K/mm3; Status: F Test: EOS #; Value: 0.0; Range: 0.0-0.50; Units: K/mm3; Status: F Test: BASO #; Value: 0.0; Range: 0.0-0.2; Units: K/mm3; Status: F Test: LARGE UNSTAINED CELL #; Value: 0.1; Range: 0.0-0.4; Units: K/mm3; Status: F Lab Order: Liver Profile; [facility] 17[facility]08 Test: AST/SGOT; Value: 17; Range: 15-37; Units: U/L; Status: F Test: ALT/SGPT; Value: 32; Range: 12-78; Units: U/L; Status: F Test: ALKALINE PHOSPHATASE; Value: 125; Range: 45-117; Abnormal: Above high normal; Units: U/L; Status: F Test: BILIRUBIN,TOTAL; Value: 0.5; Range: 0.2-1.0; Units: MG/DL; Status: F Test: BILIRUBIN,DIRECT; Value: 0.2; Range: 0.0-0.2; Units: MG/DL; Status: F Test: TOTAL PROTEIN; Value: 6.8; Range: 6.4-8.2; Units: GM/DL; Status: F Test: ALBUMIN; Value: 3.8; Range: 3.2-5.2; Units: GM/DL; Status: F Test: ALBUMIN/GLOBULIN RATIO; Value: 1.27; Range: 1.00-1.93; Status: F Lab Order: Magnesium Level; 06/25/16 17:08 Test: MAGNESIUM LEVEL; Value: 2.1; Range: 1.8-2.4; Units: MG/DL; Status: F Lab Order: TSH with Free T4; 06/25/16 17:08 Test: THYROID STIMULATING HORMONE; Value: 0.494; Range: 0.358-3.740; Units: uIU/ML; Status: F Test: FREE T4; Value: 1.09; Range: 0.76-1.46; Units: NG/DL; Status: F Lab Order: UA; 06/25/16 16:56 Test: APPEARANCE, URINE; Value: HAZY; Range: CLEAR; Status: F Test: COLOR, URINE; Value: YELLOW; Range: YELLOW; Status: F Test: PH,URINE; Value: 5.0; Range: 5.0-9.0; Units: UNITS; Status: F Test: SPECIFIC GRAVITY URINE AUTO; Value: 1.030; Range: 1.002-1.035; Status: F Test: PROTEIN, URINE AUTO; Value: NEGATIVE; Range: NEGATIVE; Units: mg/dL; Status: F Test: GLUCOSE, URINE (UA) AUTO; Value: 3+; Range: NEGATIVE; Abnormal: Above high normal; Units: mg/dL; Status: F Test: KETONE, URINE AUTO; Value: 2+; Range: NEGATIVE; Abnormal: Above high normal; Units: mg/dL; Status: F Test: UROBILINOGEN, URINE AUTO; Value: 0.2; Range: 0.0-2.0; Units: mg/dL; Status: F Test: BILIRUBIN, URINE AUTO; Value: NEGATIVE; Range: NEGATIVE; Status: F Test: NITRITE, URINE AUTO; Value: NEGATIVE; Range: NEGATIVE; Status: F Test: LEUKOCYTE ESTERASE, URINE AUTO; Value: NEGATIVE; Range: NEGATIVE; Status: F Test: BLOOD, URINE BLOOD; Value: NEGATIVE; Range: NEGATIVE; Status: F Test: WBC, URINE AUTO; Value: 1; Range: 0-3; Units: /HPF; Status: F Test: RBC, URINE AUTO; Value: 2; Range: 0-3; Units: /HPF; Status: F Test: BACTERIA, URINE AUTO; Value: NEGATIVE; Range: NEGATIVE; Status: F Test: SQUAMOUS EPITHELIAL CELL UR AU; Value: 3; Range: 0-6; Units: /HPF; Status: F Test: MUCUS, URINE; Value: SMALL; Range: NEGATIVE; Status: F Test: HYALINE CAST, URINE AUTO; Value: 0; Range: 0-1; Units: /LPF; Status: F Test: AMORPHOUS SEDIMENT; Value: SMALL; Range: NEGATIVE; Abnormal: Above high normal; Status: F Lab Order: Urine Culture; SPEC'M 06/25/16 16:56 Test: URINE CULTURE; Value: <EXTERNAL COMMENT eCWMed> FULL REPORT IN LAB NOTES (eCW and [facility]ent).; Status: F Test: URINE CULTURE; Value: URINE CULTURE RESULT SPECIMEN APPEARS CONTAMINATED; Status: F Lab Order: BASIC METABOLIC PROFILE; [facility] 17:08 Test: GLUCOSE, FASTING; Value: 311; Range: 70-105; Abnormal: Above high normal; Units: MG/DL; Status: F Test: BLOOD UREA NITROGEN; Value: 32; Range: 7-18; Abnormal: Above high normal; Units: MG/DL; Status: F Test: CREATININE FOR GFR; Value: 1.20; Range: 0.55-1.02; Abnormal: Above high normal; Units: MG/DL; Status: F Test: GLOMERULAR FILTRATION RATE; Value: 54.1; Range: >60; Abnormal: Below low normal; Status: F Test: SODIUM LEVEL; Value: 135; Range: 136-145; Abnormal: Below low normal; Units: MEQ/L; Status: F Test: POTASSIUM SERUM; Value: 4.4; Range: 3.5-5.1; Units: MEQ/L; Status: F Test: CHLORIDE LEVEL; Value: 101; Range: 98-107; Units: MEQ/L; Status: F Test: CARBON DIOXIDE LEVEL; Value: 20; Range: 21-32; Abnormal: Below low normal; Units: MEQ/L; Status: F Test: ANION GAP; Value: 14; Range: 8-16; Units: MEQ/L; Status: F Test: CALCIUM LEVEL; Value: 8.7; Range: 8.5-10.1; Units: MG/DL; Status: F Test Note: ; Units are mL/min/1.73 m2 Chronic Kidney Disease Staging per NKF: Stage I & II GFR >=60 Normal to Mildly Decreased Stage III GFR 30-59 Moderately Decreased Stage IV GFR 15-29 Severely Decreased Stage V GFR <15 Very Little GFR Left ESRD GFR <15 on SUPERVISOR FACEPIECE LINE Lab Order: Fingerstick Blood Sugar; [facility]06/[facility] 18:00 Test: BEDSIDE GLUCOSE; Value: 237; Range: 70-105; Abnormal: Above high normal; Units: MG/DL; Status: F Test Note: ; Dr Order not to Draw Repeated Test Lab Order: Fingerstick Blood Sugar; [facility] 06/25/16 18:12 Test: BEDSIDE GLUCOSE; Value: 221; Range: 70-105; Abnormal: Above high normal; Units: MG/DL; Status: F Lab Order: Fingerstick Blood Sugar; [facility] 06/25/16 19:54 Test: BEDSIDE GLUCOSE; Value: 199; Range: 70-105; Abnormal: Above high normal; Units: MG/DL; Status: F Outcome: 20:39 Discharge ordered by Provider. cs11 21:01 Discharge Assessment: Patient awake, alert and oriented x 3. No cognitive and/or nn1 functional deficits noted. Patient verbalized understanding of disposition instructions. patient administered narcotics - no. The following High Risk Discharge criteria are identified: None. Discharged to home ambulatory, with family. Condition: stable Condition: improved. Property :Personal belongings accompany Pt. 21:01 No special radiology studies were completed. nn1 21:01 Patient left the ED. nn1 Signatures: Gene Matamoros MD MD Enriqueta Holder, RN RN kcs Senait, Toyin, Reg Reg gb Hakan, Yogesh zo Karime Murphy, FIRST SAMPLER FIRST SAMPLER osvaldo Mayberry, Ale dem1 Steven Akbar, DO cs11 Jose Armando EdwardsRN RN Sierra MoraRN Sarahi SavageRN RN nn1 Imani Hamm,RN RN kc3 Chart Complete MTDD
== END 2016-06-25 21:01 | disposition home or self-care (01) ==
LOC: M ED 15:48
DX: E11.65 Type 2 diabetes mellitus with hyperglycemia (principal); E86.0 Dehydration; F32.9 Major depressive disorder, single episode, unspecified; E78.00 Pure hypercholesterolemia, unspecified; K21.9 Gastro-esophageal reflux disease without esophagitis; F41.9 Anxiety disorder, unspecified; I63.9 Cerebral infarction, unspecified; Z79.82 Long term (current) use of aspirin; Z79.4 Long term (current) use of insulin; Z79.899 Other long term (current) drug therapy; Z88.8 Allergy status to other drugs, medicaments and biological substances

== ENCOUNTER → 2016-08-20 | Outpatient (CLI) | payer OTHER ==
[2016-08-20 19:19] LABS: ALBUMIN 3.5 GM/DL (3.2-5.2); ALBUMIN/GLOBULIN RATIO 1.25 (1.00-1.93); ALKALINE PHOSPHATASE 116 U/L (45-117); ALT/SGPT 24 U/L (12-78); ANION GAP 6 MEQ/L (8-16); AST/SGOT 11 U/L (15-37); BILIRUBIN,TOTAL 0.2 MG/DL (0.2-1.0); BLOOD UREA NITROGEN 12 MG/DL (7-18); CALCIUM LEVEL 8.5 MG/DL (8.5-10.1); CARBON DIOXIDE LEVEL 27 MEQ/L (21-32); CHLORIDE LEVEL 109 MEQ/L (98-107); CREATININE FOR GFR 0.79 MG/DL (0.55-1.02); GLOMERULAR FILTRATION RATE > 60.0 (>60); GLUCOSE, FASTING 161 MG/DL (70-105); POTASSIUM SERUM 4.5 MEQ/L (3.5-5.1); SODIUM LEVEL 142 MEQ/L (136-145); TOTAL PROTEIN 6.3 GM/DL (6.4-8.2)
[2016-08-20 19:47] LABS: BASO % 0.4 % (0.0-1.0); EOS # 0.1 K/mm3 (0.0-0.50); EOS % 1.5 % (0.0-3.0); LARGE UNSTAINED CELL # 0.1 K/mm3 (0.0-0.4); LYMPH # 1.9 K/mm3 (1.5-4.5); MEAN CORPUSCULAR HEMOGLOBIN 30.8 pg (27.0-33.0); MEAN CORPUSCULAR HGB CONC 33.1 g/dl (32.0-36.5); MEAN CORPUSCULAR VOLUME 93.1 fl (80.0-96.0); MONO # 0.2 K/mm3 (0.0-0.8); MONO % 3.2 % (0.0-5.0); NEUTROPHILS # 3.5 K/mm3 (1.8-7.7); PLATELET COUNT, AUTOMATED 399 k/mm3 (150-450); RED CELL DISTRIBUTION WIDTH 11.9 % (11.5-14.5); WHITE BLOOD COUNT 5.7 K/mm3 (4.0-10.0)
== END ==
LOC: M SMT 11:34
PROVIDERS: ATTEND Family Medicine
DX: E10.65 Type 1 diabetes mellitus with hyperglycemia (principal); M54.5 Low back pain

== ENCOUNTER 2017-01-05 10:45 | Emergency (ER) | payer OTHER ==
[~2017-01-05] VITALS: Ht 160 cm; Wt 72.7 kg
[~2017-01-05 10:45] MED LIST changes: +GABA-282 PO; -GABA300C3 PO; +HYDR-3363 PO; -HYDR25T PO
[2017-01-05] MEDS ORDERED: INSUH10VL SC (10:56)
[2017-01-05] MEDS ORDERED: LR 1,000 ML IV ONE (11:30)
[2017-01-05 11:46] LABS: BASO % 0.5 % (0.0-1.0); EOS # 0.1 K/mm3 (0.0-0.50); EOS % 1.4 % (0.0-3.0); LARGE UNSTAINED CELL # 0.1 K/mm3 (0.0-0.4); LYMPH # 2.3 K/mm3 (1.5-4.5); LYMPH % 28.8 % (24.0-44.0); MEAN CORPUSCULAR HEMOGLOBIN 30.4 pg (27.0-33.0); MEAN CORPUSCULAR VOLUME 91.9 fl (80.0-96.0); MONO # 0.3 K/mm3 (0.0-0.8); NEUTROPHILS % 64.3 % (36.0-66.0); PLATELET COUNT, AUTOMATED 360 k/mm3 (150-450); RED CELL DISTRIBUTION WIDTH 12.6 % (11.5-14.5); WHITE BLOOD COUNT 7.8 K/mm3 (4.0-10.0)
[2017-01-05 12:04] LABS: ALBUMIN 3.8 GM/DL (3.2-5.2); ALBUMIN/GLOBULIN RATIO 1.06 (1.00-1.93); ALKALINE PHOSPHATASE 104 U/L (45-117); ALT/SGPT 16 U/L (12-78); ANION GAP 8 MEQ/L (8-16); AST/SGOT 8 U/L (15-37); BILIRUBIN,TOTAL 0.3 MG/DL (0.2-1.0); BLOOD UREA NITROGEN 13 MG/DL (7-18); CALCIUM LEVEL 8.7 MG/DL (8.5-10.1); CARBON DIOXIDE LEVEL 23 MEQ/L (21-32); CHLORIDE LEVEL 111 MEQ/L (98-107); CREATININE FOR GFR 0.94 MG/DL (0.55-1.02); GLOMERULAR FILTRATION RATE > 60.0 (>60); GLUCOSE, FASTING 177 MG/DL (70-105); POTASSIUM SERUM 3.5 MEQ/L (3.5-5.1); SODIUM LEVEL 142 MEQ/L (136-145); TOTAL PROTEIN 7.4 GM/DL (6.4-8.2)
[2017-01-05 12:48] VITALS: BP 119/62
== END 2017-01-05 12:50 | disposition home or self-care (01) ==
LOC: M ED 11:17
DX: R19.7 Diarrhea, unspecified (principal); E10.9 Type 1 diabetes mellitus without complications

== ENCOUNTER → 2017-12-23 | Outpatient (REF) | payer OTHER ==
[2017-12-26 08:06] LABS: HPV LOW VOL RFLX Negative (Negative)
== END ==
LOC: M LAB REF 17:30
DX: Z12.4 Encounter for screening for malignant neoplasm of cervix (principal)

== ENCOUNTER → 2018-01-29 | Outpatient (CLI) | payer OTHER ==
[2018-01-30 11:27] LABS: ALBUMIN/GLOBULIN RATIO 1.21 (1.00-1.93); ALKALINE PHOSPHATASE 98 U/L (45-117); ALT/SGPT 14 U/L (12-78); ANION GAP 9 MEQ/L (8-16); AST/SGOT 9 U/L (7-37); BILIRUBIN,TOTAL 0.4 MG/DL (0.2-1.0); BLOOD UREA NITROGEN 25 MG/DL (7-18); CALCIUM LEVEL 8.7 MG/DL (8.5-10.1); CARBON DIOXIDE LEVEL 22 MEQ/L (21-32); CHLORIDE LEVEL 108 MEQ/L (98-107); CHOLESTEROL LEVEL 192 MG/DL (<200); CREATININE FOR GFR 1.21 MG/DL (0.55-1.30); FREE T4 0.92 NG/DL (0.76-1.46); GLUCOSE, FASTING 309 MG/DL (70-100); HDL CHOLESTEROL 64 MG/DL (>40); LDL CHOLESTEROL 93 MG/DL (<100); NON-HDL-C 128 MG/DL; POTASSIUM SERUM 4.4 MEQ/L (3.5-5.1); SODIUM LEVEL 139 MEQ/L (136-145); THYROID STIMULATING HORMONE 0.732 uIU/ML (0.358-3.740); TOTAL PROTEIN 7.3 GM/DL (6.4-8.2); TRIGLYCERIDES LEVEL 175 MG/DL (<150)
[2018-01-30 14:37] LABS: TOTAL 25(OH) VITAMIN D 74.6 NG/ML (30.0-100.0)
== END ==
LOC: M SMT 13:10
DX: F31.4 Bipolar disorder, current episode depressed, severe, without psychotic features (principal); E10.65 Type 1 diabetes mellitus with hyperglycemia; I10 Essential (primary) hypertension
CPT/HCPCS: 84443